=== PATIENT | male | born 1935 | race Caucasian/White ===

== ENCOUNTER 2018-05-12 11:36 | Outpatient (REF) | payer MEDICARE, SELFPAY ==
[2018-05-12 22:57] LABS: Anion Gap 8.7 mmol/L (3-11); BUN 30 mg/dL (7-18); CO2 25.3 mmol/L (21.0-32.0); CREATININE 1.49 mg/dL (0.70-1.30); Chloride 107 mmol/L (98-107); Estimated GFR 45.38 (mL/min/1.73m2); Glucose 232 mg/dL (70-100); Potassium 5.4 mmol/L (3.5-5.1); Sodium 141 mmol/L (136-145)
[2018-05-12 23:56] LABS: COMMENT (LAB VIEW ONLY) 111.79 mg/dL; Microalb ug/mg Crea 65.6 ug/mg Cr
== END 2018-05-12 11:56 ==
LOC: NCHCN 11:36
PROVIDERS: PCP Internal Medicine; Visit Provider Internal Medicine
DX: E11.9 Type 2 diabetes mellitus without complications (principal); E87.5 Hyperkalemia
CPT/HCPCS: 80048; 82043; 82570

== ENCOUNTER 2018-06-02 10:46 | Outpatient (REF) | payer MEDICARE, SELFPAY ==
[2018-06-02 21:22] LABS: Potassium 5.3 mmol/L (3.5-5.1)
== END 2018-06-02 11:06 ==
LOC: NCHCN 10:46
PROVIDERS: PCP Internal Medicine; Visit Provider Internal Medicine
DX: R79.0 Abnormal level of blood mineral (principal)
CPT/HCPCS: 84132

== ENCOUNTER 2018-08-09 22:49 | Outpatient (REF) | payer MEDICARE, SELFPAY ==
[2018-08-09 23:30] LABS: Anion Gap 9.8 mmol/L (3-11); BUN 31 mg/dL (7-18); CO2 27.2 mmol/L (21.0-32.0); Calcium 8.8 mg/dL (8.5-10.1); Chloride 105 mmol/L (98-107); Estimated GFR 52.98 (mL/min/1.73m2); Glucose 193 mg/dL (70-100); Potassium 4.9 mmol/L (3.5-5.1); Sodium 142 mmol/L (136-145)
== END 2018-08-09 23:09 ==
LOC: NCHCN 22:49
PROVIDERS: PCP Internal Medicine; Visit Provider Internal Medicine
DX: R79.0 Abnormal level of blood mineral (principal); E11.9 Type 2 diabetes mellitus without complications
CPT/HCPCS: 80048

== ENCOUNTER 2019-08-31 10:30 | Outpatient (REF) | payer MEDICARE, SELFPAY ==
[2019-08-31 23:07] LABS: Anion Gap 12.3 mmol/L (3-11); BUN 34 mg/dL (7-18); CO2 25.7 mmol/L (21.0-32.0); CREATININE 1.46 mg/dL (0.70-1.30); Calcium 8.9 mg/dL (8.5-10.1); Calculated LDL 95 mg/dL; Chloride 104 mmol/L (98-107); Cholesterol 146 mg/dL (<200); Estimated GFR 46.23 (mL/min/1.73m2); Glucose 173 mg/dL (74-106); HDL Cholesterol 41 mg/dL (40-60); Hemoglobin A1C 7.8 % (3.8-5.6); Potassium 4.7 mmol/L (3.5-5.1); Sodium 142 mmol/L (136-145); Triglyceride 54 mg/dL (<150)
[2019-08-31 23:22] LABS: COMMENT (LAB VIEW ONLY) 87.95 mg/dL; Microalb ug/mg Crea 92.7 ug/mg Cr
== END 2019-08-31 10:50 ==
LOC: NCHCN 10:30
PROVIDERS: PCP Internal Medicine; Visit Provider Internal Medicine
DX: E11.9 Type 2 diabetes mellitus without complications (principal); I10 Essential (primary) hypertension; I25.10 Atherosclerotic heart disease of native coronary artery without angina pectoris; Z13.6 Encounter for screening for cardiovascular disorders
CPT/HCPCS: 80048; 80061; 82043; 82570; 83036

== ENCOUNTER 2020-03-19 11:12 | Outpatient (REF) | payer MEDICARE, SELFPAY ==
[2020-03-19 22:24] LABS: Anion Gap 10.5 mmol/L (3-11); BUN 44 mg/dL (7-18); CO2 23.5 mmol/L (21.0-32.0); CREATININE 1.91 mg/dL (0.70-1.30); Calcium 8.7 mg/dL (8.5-10.1); Chloride 106 mmol/L (98-107); Glucose 271 mg/dL (74-106); Potassium 5.2 mmol/L (3.5-5.1); Sodium 140 mmol/L (136-145)
[2020-03-19 22:36] LABS: Hemoglobin A1C 7.8 % (3.8-5.6)
== END 2020-03-19 11:32 ==
LOC: NCHCN 11:12
PROVIDERS: PCP Internal Medicine; Visit Provider Internal Medicine
DX: E11.9 Type 2 diabetes mellitus without complications (principal); I10 Essential (primary) hypertension
CPT/HCPCS: 80048; 83036

== ENCOUNTER 2020-03-22 11:53 | Outpatient (REF) | payer MEDICARE, SELFPAY ==
[2020-03-22 21:08] LABS: Bilirubin Negative (Negative); Blood Negative (Negative); Clarity Clear (Clear); Glucose Negative (Negative); Ketones Trace mg/dL (Negative); Leukocyte Esterase Negative (Negative); Nitrite Negative (Negative); Specific Gravity 1.025 (1.005-1.025); Urobilinogen 0.2 EU/dL (Up TO 0.2); pH 5.5 (5-8)
[2020-03-22 21:19] LABS: Bacteria Negative HPF (Negative); C & S Indicated? No; Crystals Negative HPF (Negative); Epithelial Cells Negative HPF (Negative); Mucus Negative (Negative); RBC 0-2 HPF (0-2); WBC 0-2 HPF (0-5)
[2020-03-22 21:31] LABS: Microalb ug/mg Crea 94.5 ug/mg Cr
== END 2020-03-22 12:13 ==
LOC: NCHCN 11:53
PROVIDERS: PCP Internal Medicine; Visit Provider Internal Medicine
DX: N18.3 Chronic kidney disease, stage 3 (moderate) (principal)
CPT/HCPCS: 81003; 81015; 82043; 82570

== ENCOUNTER 2020-04-03 21:51 | Outpatient (REF) | payer MEDICARE, SELFPAY ==
[2020-04-03 21:34] LABS: Anion Gap 10.9 mmol/L (3-11); BUN 36 mg/dL (7-18); CO2 25.1 mmol/L (21.0-32.0); CREATININE 1.67 mg/dL (0.70-1.30); Chloride 106 mmol/L (98-107); Estimated GFR 39.58 (mL/min/1.73m2); Glucose 149 mg/dL (74-106); Potassium 4.6 mmol/L (3.5-5.1); Sodium 142 mmol/L (136-145)
== END 2020-04-03 22:11 ==
LOC: NCHCN 21:51
PROVIDERS: PCP Internal Medicine; Visit Provider Internal Medicine
DX: N18.3 Chronic kidney disease, stage 3 (moderate) (principal)
CPT/HCPCS: 80048

== ENCOUNTER 2020-06-08 12:38 | Outpatient (REF) | payer MEDICARE, SELFPAY ==
[2020-06-08 21:23] LABS: BUN 33 mg/dL (7-18); CREATININE 1.52 mg/dL (0.70-1.30); Chloride 106 mmol/L (98-107); Estimated GFR 44.13 (mL/min/1.73m2); Glucose 115 mg/dL (74-106); Potassium 4.6 mmol/L (3.5-5.1); Sodium 138 mmol/L (136-145)
[2020-06-08 21:24] LABS: Hemoglobin A1C 7.3 % (<5.7)
== END 2020-06-08 12:58 ==
LOC: NCHCN 12:38
PROVIDERS: PCP Internal Medicine; Visit Provider Internal Medicine
DX: E11.9 Type 2 diabetes mellitus without complications (principal); I10 Essential (primary) hypertension; N18.30 Chronic kidney disease, stage 3 unspecified
CPT/HCPCS: 80048; 83036

== ENCOUNTER 2020-12-11 15:00 | Outpatient (REF) | payer MEDICARE, SELFPAY ==
[2020-12-11 13:08] LABS: BUN 41 mg/dL (7-18); CREATININE 1.7 mg/dL (0.70-1.30); Calcium 8.5 mg/dL (8.5-10.1); Chloride 108 mmol/L (98-107); Estimated GFR 38.68 (mL/min/1.73m2); Glucose 158 mg/dL (74-106); Sodium 142 mmol/L (136-145)
== END 2020-12-11 15:01 | disposition home or self-care (01) ==
LOC: NCHCN 15:00
PROVIDERS: PCP Internal Medicine; Visit Provider Internal Medicine
DX: I10 Essential (primary) hypertension (principal); N18.30 Chronic kidney disease, stage 3 unspecified; E11.9 Type 2 diabetes mellitus without complications
CPT/HCPCS: 80048; 83036

== ENCOUNTER 2021-02-07 13:05 | Outpatient (REF) | payer MEDICARE, SELFPAY ==
[2021-02-07 21:07] LABS: Anion Gap 12.4 mmol/L (3-11); BUN 39 mg/dL (7-18); CO2 23.6 mmol/L (21.0-32.0); CREATININE 1.6 mg/dL (0.70-1.30); Calcium 8.8 mg/dL (8.5-10.1); Chloride 105 mmol/L (98-107); Estimated GFR 41.49 (mL/min/1.73m2); Glucose 204 mg/dL (74-106); Potassium 4.8 mmol/L (3.5-5.1); Sodium 141 mmol/L (136-145)
== END 2021-02-08 13:06 | disposition home or self-care (01) ==
LOC: NCHCN 13:05
PROVIDERS: PCP Internal Medicine; Visit Provider Registered Nurse
DX: R42 Dizziness and giddiness (principal)
CPT/HCPCS: 80048

== ENCOUNTER 2021-03-07 10:14 | Outpatient (REF) | payer MEDICARE, SELFPAY ==
[2021-03-07 14:05] LABS: Abs Immature Grans 0.02 10^3/uL (0.0-0.06); Absolute Basophil Count 0.04 10^3/uL (0.0-0.2); Absolute Eosinophil Count 0.21 10^3/uL (0.0-0.7); Absolute Lymphocyte Count 2.16 10^3/uL (1.2-3.4); Absolute Monocyte Count 0.84 10^3/uL (0.1-0.8); Basophils % 0.5; Eosinophils % 2.8; HCT 35.4 % (40.0-50.0); HGB 11.8 g/dL (13.5-17.5); Immature Grans % 0.3; Lymphocytes % 28.9; MCH 32.1 pg (27.0-33.0); MCHC 33.3 % (32.0-36.0); MCV 96.2 fL (80-95); MPV 11.1 fL (8.0-11.0); Monocytes % 11.2; Neutrophils % 56.3; Nucleated RBC 0 %; Platelet Count 206 10^3/uL (130-400); RBC 3.68 10^6/uL (4.36-5.78); RDW 13.1 % (11.8-14.1); RDW-SD 46.4 fL; WBC 7.47 10^3/uL (4.4-10.8)
[2021-03-07 14:17] LABS: ALT 31 U/L (16-63); AST 16 U/L (15-37); Albumin 3.5 g/dL (3.4-5.0); Alkaline Phosphatase 84 U/L (46-116); Anion Gap 10.9 mmol/L (3-11); BUN 32 mg/dL (7-18); Bilirubin, Direct 0.1 mg/dL (0.0-0.2); Bilirubin, Total 0.4 mg/dL (0.2-1.0); CO2 22.1 mmol/L (21.0-32.0); CREATININE 1.5 mg/dL (0.70-1.30); Calcium 8.4 mg/dL (8.5-10.1); Chloride 109 mmol/L (98-107); Estimated GFR 44.69 (mL/min/1.73m2); Glucose 110 mg/dL (74-106); Potassium 5.1 mmol/L (3.5-5.1); Sodium 142 mmol/L (136-145); Total Protein 6.5 g/dL (6.4-8.2)
[2021-03-07 14:50] LABS: Hemoglobin A1C 8.8 % (<5.7)
[2021-03-09 13:43] LABS: Vitamin D 25 Total 31.3 ng/mL (30-100)
== END 2021-03-07 10:15 | disposition home or self-care (01) ==
LOC: NCHCN 10:14
PROVIDERS: PCP Internal Medicine; Visit Provider Internal Medicine
DX: I12.9 Hypertensive chronic kidney disease with stage 1 through stage 4 chronic kidney disease, or unspecified chronic kidney disease (principal); E11.22 Type 2 diabetes mellitus with diabetic chronic kidney disease; N18.30 Chronic kidney disease, stage 3 unspecified
CPT/HCPCS: 80048; 80076; 82306; 83036; 85025

== ENCOUNTER 2021-03-18 13:44 | Outpatient (REF) | payer MEDICARE, SELFPAY ==
[2021-03-18 21:33] LABS: Microalb ug/mg Crea 61.7 ug/mg Cr
== END 2021-03-18 13:45 | disposition home or self-care (01) ==
LOC: NCHCN 13:44
PROVIDERS: PCP Internal Medicine; Visit Provider Internal Medicine
DX: E11.9 Type 2 diabetes mellitus without complications (principal)
CPT/HCPCS: 82043; 82570

== ENCOUNTER 2021-12-13 12:57 | Outpatient (REF) | payer MEDICARE, SELFPAY ==
[2021-12-13 15:48] LABS: Abs Immature Grans 0.01 10^3/uL (0.0-0.06); Absolute Basophil Count 0.04 10^3/uL (0.0-0.2); Absolute Eosinophil Count 0.12 10^3/uL (0.0-0.7); Absolute Lymphocyte Count 1.71 10^3/uL (1.2-3.4); Absolute Monocyte Count 0.77 10^3/uL (0.1-0.8); Absolute Neutrophil Count 5.18 10^3/uL (1.2-6.7); Basophils % 0.5; Eosinophils % 1.5; HCT 34.3 % (40.0-50.0); HGB 11.2 g/dL (13.5-17.5); Immature Grans % 0.1; Lymphocytes % 21.8; MCH 32.1 pg (27.0-33.0); MCHC 32.7 % (32.0-36.0); MCV 98.3 fL (80-95); MPV 11.2 fL (8.0-11.0); Monocytes % 9.8; Neutrophils % 66.3; Platelet Count 197 10^3/uL (130-400); RBC 3.49 10^6/uL (4.36-5.78); RDW 13.1 % (11.8-14.1); RDW-SD 46.7 fL; WBC 7.83 10^3/uL (4.4-10.8)
[2021-12-13 16:04] LABS: Anion Gap 7.5 mmol/L (3-11); BUN 32 mg/dL (7-18); CO2 26.5 mmol/L (21.0-32.0); CREATININE 1.4 mg/dL (0.70-1.30); Calcium 8.3 mg/dL (8.5-10.1); Chloride 107 mmol/L (98-107); Estimated GFR 48.28 (mL/min/1.73m2); Glucose 200 mg/dL (74-106); Potassium 4.8 mmol/L (3.5-5.1); Sodium 141 mmol/L (136-145)
[2021-12-13 16:14] LABS: Microalb ug/mg Crea 125.7 ug/mg Cr
[2021-12-13 16:16] LABS: Hemoglobin A1C 7.2 % (<5.7)
== END 2021-12-13 12:58 | disposition home or self-care (01) ==
LOC: NCHCN 12:57
PROVIDERS: PCP Internal Medicine; Visit Provider Internal Medicine
DX: E11.9 Type 2 diabetes mellitus without complications (principal); N18.30 Chronic kidney disease, stage 3 unspecified; I10 Essential (primary) hypertension
CPT/HCPCS: 80048; 82043; 82570; 83036; 85025

== ENCOUNTER 2022-11-24 12:46 | Outpatient (REF) | payer MEDICARE, SELFPAY ==
[2022-11-24 21:23] LABS: Abs Immature Grans 0.03 10^3/uL (0.0-0.06); Absolute Basophil Count 0.05 10^3/uL (0.0-0.2); Absolute Eosinophil Count 0.12 10^3/uL (0.0-0.7); Absolute Monocyte Count 0.88 10^3/uL (0.1-0.8); Absolute Neutrophil Count 5.71 10^3/uL (1.2-6.7); Basophils % 0.6; Eosinophils % 1.3; HGB 12.8 g/dL (13.5-17.5); Immature Grans % 0.3; Lymphocytes % 24.5; MCH 31.7 pg (27.0-33.0); MCHC 33.7 % (32.0-36.0); MCV 94 fL (80-95); MPV 11.7 fL (8.0-11.0); Monocytes % 9.8; Neutrophils % 63.5; Platelet Count 222 10^3/uL (130-400); RBC 4.04 10^6/uL (4.36-5.78); RDW 13.5 % (11.8-14.1); RDW-SD 46.6 fL; WBC 8.99 10^3/uL (4.4-10.8)
[2022-11-24 21:58] LABS: COMMENT (LAB VIEW ONLY) 107.82 mg/dL
[2022-11-24 22:17] LABS: ALT 30 U/L (16-63); AST 23 U/L (15-37); Albumin 4.2 g/dL (3.4-5.0); Alkaline Phosphatase 94 U/L (46-116); Anion Gap 10.2 mmol/L (3-11); BUN 40 mg/dL (7-18); Bilirubin, Total 0.4 mg/dL (0.2-1.0); CO2 24.8 mmol/L (21.0-32.0); CREATININE 1.8 mg/dL (0.70-1.30); Calcium 9.3 mg/dL (8.5-10.1); Chloride 108 mmol/L (98-107); Estimated GFR 36.43 (mL/min/1.73m2); Glucose 151 mg/dL (74-106); Potassium 5.4 mmol/L (3.5-5.1); Sodium 143 mmol/L (136-145); Total Protein 7.8 g/dL (6.4-8.2); Vitamin B12 529 pg/mL (193-986)
[2022-11-24 22:29] LABS: Microalb ug/mg Crea 269.4 ug/mg Cr
== END 2022-11-24 12:47 | disposition home or self-care (01) ==
LOC: NCHCN 12:46
PROVIDERS: PCP Internal Medicine; Visit Provider Internal Medicine
DX: D53.9 Nutritional anemia, unspecified (principal); E11.9 Type 2 diabetes mellitus without complications; I10 Essential (primary) hypertension
CPT/HCPCS: 80053; 82043; 82570; 82607; 82746; 85025

== ENCOUNTER 2022-12-25 10:29 | Outpatient (REF) | payer MEDICARE, SELFPAY ==
[2022-12-25 15:32] LABS: BUN 50 mg/dL (7-18); CREATININE 2.1 mg/dL (0.70-1.30); Calcium 8.9 mg/dL (8.5-10.1); Chloride 106 mmol/L (98-107); Estimated GFR 30.28 (mL/min/1.73m2); Glucose 139 mg/dL (74-106); Potassium 5.4 mmol/L (3.5-5.1); Sodium 140 mmol/L (136-145)
== END 2022-12-25 10:30 | disposition home or self-care (01) ==
LOC: NCHCN 10:29
PROVIDERS: PCP Internal Medicine; Visit Provider Internal Medicine
DX: N17.9 Acute kidney failure, unspecified (principal); E11.9 Type 2 diabetes mellitus without complications
CPT/HCPCS: 80048

== ENCOUNTER 2023-02-20 12:05 | Outpatient (REF) | payer MEDICARE, SELFPAY ==
[2023-02-20 15:34] LABS: HCT 36.9 % (40.0-50.0); HGB 12.6 g/dL (13.5-17.5); MCHC 34.1 % (32.0-36.0); MCV 97 fL (80-95); MPV 11.1 fL (8.0-11.0); Platelet Count 244 10^3/uL (130-400); RBC 3.82 10^6/uL (4.36-5.78); RDW 13.7 % (11.8-14.1); RDW-SD 48.8 fL
[2023-02-20 15:42] LABS: Anion Gap 12.4 mmol/L (3-11); BUN 39 mg/dL (7-18); CO2 23.6 mmol/L (21.0-32.0); CREATININE 1.8 mg/dL (0.70-1.30); Calcium 9.2 mg/dL (8.5-10.1); Chloride 104 mmol/L (98-107); Estimated GFR 36.43 (mL/min/1.73m2); Glucose 179 mg/dL (74-106); Potassium 4.9 mmol/L (3.5-5.1); Sodium 140 mmol/L (136-145)
[2023-02-20 15:44] LABS: C-Reactive Protein < 0.05 mg/dL (0.0-0.3)
== END 2023-02-20 12:06 | disposition home or self-care (01) ==
LOC: NCHCN 12:05
PROVIDERS: PCP Internal Medicine; Visit Provider Internal Medicine
DX: N17.9 Acute kidney failure, unspecified (principal); H53.2 Diplopia
CPT/HCPCS: 80048; 83519; 85027; 86140

== ENCOUNTER 2023-07-22 16:47 | Outpatient (REF) | payer MEDICARE, SELFPAY ==
[2023-07-22 21:39] LABS: Anion Gap 10.9 mmol/L (3-11); BUN 33 mg/dL (7-18); CO2 25.1 mmol/L (21.0-32.0); CREATININE 1.9 mg/dL (0.70-1.30); Calcium 8.9 mg/dL (8.5-10.1); Chloride 105 mmol/L (98-107); Estimated GFR 33.93 (mL/min/1.73m2); Glucose 168 mg/dL (74-106); Potassium 4.6 mmol/L (3.5-5.1); Sodium 141 mmol/L (136-145)
[2023-07-22 21:47] LABS: Hemoglobin A1C 8.2 % (<5.7)
== END 2023-07-22 16:48 | disposition home or self-care (01) ==
LOC: NCHCN 16:47
PROVIDERS: PCP Internal Medicine; Visit Provider Internal Medicine
DX: E11.9 Type 2 diabetes mellitus without complications (principal); N18.30 Chronic kidney disease, stage 3 unspecified
CPT/HCPCS: 80048; 83036

== ENCOUNTER 2023-10-23 16:45 | Outpatient (REF) | payer MEDICARE, SELFPAY ==
[2023-10-23 15:02] LABS: Hemoglobin A1C 7.7 % (<5.7)
== END 2023-10-23 16:46 | disposition home or self-care (01) ==
LOC: NCHCN 16:45
PROVIDERS: PCP Internal Medicine; Referring Provider Internal Medicine; Visit Provider Internal Medicine
DX: E11.9 Type 2 diabetes mellitus without complications (principal)
CPT/HCPCS: 83036

== ENCOUNTER 2024-02-17 12:09 | Outpatient (REF) | payer MEDICARE, SELFPAY ==
[2024-02-17 14:44] LABS: HCT 36.1 % (40.0-50.0); HGB 12.4 g/dL (13.5-17.5); MCH 33.6 pg (27.0-33.0); MCHC 34.3 % (32.0-36.0); MCV 98 fL (80-95); Platelet Count 239 10^3/uL (130-400); RBC 3.69 10^6/uL (4.36-5.78); RDW 14.4 % (11.8-14.1); RDW-SD 51.7 fL; WBC 8.03 10^3/uL (4.4-10.8)
[2024-02-17 15:29] LABS: ALT 32 U/L (16-63); AST 20 U/L (15-37); Albumin 3.7 g/dL (3.4-5.0); Alkaline Phosphatase 81 U/L (46-116); Anion Gap 10.8 mmol/L (3-11); BUN 40 mg/dL (7-18); Bilirubin, Total 0.39 mg/dL (0.2-1.0); CO2 25.2 mmol/L (21.0-32.0); CREATININE 1.8 mg/dL (0.70-1.30); Calcium 9.4 mg/dL (8.5-10.1); Chloride 107 mmol/L (98-107); Estimated GFR 36.21 (mL/min/1.73m2); Ferritin 50 ng/mL (26-388); Glucose 139 mg/dL (74-106); Potassium 4.9 mmol/L (3.5-5.1); Sodium 143 mmol/L (136-145); Total Protein 7.4 g/dL (6.4-8.2); Vitamin D 25 Total 23.6 ng/mL (30-100)
[2024-02-17 22:27] LABS: Parathyroid Hormone,Intact 35 pg/mL (19-88)
== END 2024-02-17 12:10 | disposition home or self-care (01) ==
LOC: NCHCN 12:09
PROVIDERS: PCP Internal Medicine; Visit Provider Internal Medicine
DX: N18.30 Chronic kidney disease, stage 3 unspecified (principal)
CPT/HCPCS: 80053; 82306; 85027; 82728; 83970

== ENCOUNTER 2024-07-11 14:54 | Outpatient (REF) | payer MEDICARE, SELFPAY ==
[2024-07-11 21:21] LABS: COMMENT (LAB VIEW ONLY) 97.52 mg/dL
[2024-07-11 21:22] LABS: Microalb ug/mg Crea 396.3 ug/mg Cr
== END 2024-07-11 14:55 | disposition home or self-care (01) ==
LOC: NCHCN 14:54
PROVIDERS: PCP Internal Medicine; Visit Provider Internal Medicine
DX: E11.9 Type 2 diabetes mellitus without complications (principal)
CPT/HCPCS: 82043; 82570

== ENCOUNTER 2024-10-05 13:04 | Outpatient (REF) | payer MEDICARE, SELFPAY ==
[2024-10-05 14:20] LABS: HCT 35.3 % (40.0-50.0); HGB 11.8 g/dL (13.5-17.5); MCH 33.2 pg (27.0-33.0); MCHC 33.4 % (32.0-36.0); MCV 99 fL (80-95); MPV 10.5 fL (8.0-11.0); Platelet Count 250 10^3/uL (130-400); RBC 3.55 10^6/uL (4.36-5.78); RDW 14.6 % (11.8-14.1); RDW-SD 52.9 fL; WBC 7.58 10^3/uL (4.4-10.8)
[2024-10-05 14:49] LABS: Anion Gap 9.2 mmol/L (3-11); BUN 34 mg/dL (7-18); CO2 25.8 mmol/L (21.0-32.0); CREATININE 1.7 mg/dL (0.70-1.30); Calcium 9.1 mg/dL (8.5-10.1); Chloride 108 mmol/L (98-107); Estimated GFR 38.53 (mL/min/1.73m2); Glucose 103 mg/dL (74-106); Potassium 5.2 mmol/L (3.5-5.1); Sodium 143 mmol/L (136-145); Vitamin D 25 Total 50.2 ng/mL (30-100)
[2024-10-05 15:03] LABS: Hemoglobin A1C 7.5 % (<5.7)
== END 2024-10-05 13:05 | disposition home or self-care (01) ==
LOC: NCHCN 13:04
PROVIDERS: PCP Internal Medicine; Visit Provider Internal Medicine
DX: E11.9 Type 2 diabetes mellitus without complications (principal); N18.30 Chronic kidney disease, stage 3 unspecified; I10 Essential (primary) hypertension
CPT/HCPCS: 80048; 82306; 85027; 83036

== ENCOUNTER 2024-10-12 13:10 | Outpatient (REF) | payer MEDICARE, SELFPAY ==
[2024-10-12 16:55] LABS: Vitamin B12 311 pg/mL (193-986)
== END 2024-10-12 13:11 | disposition home or self-care (01) ==
LOC: NCHCN 13:10
PROVIDERS: PCP Internal Medicine; Visit Provider Internal Medicine
DX: R41.3 Other amnesia (principal)
CPT/HCPCS: 82607

== ENCOUNTER 2025-01-09 12:27 | Outpatient (REF) | payer MEDICARE, SELFPAY ==
[2025-01-09 15:12] LABS: Absolute Basophil Count 0.03 10^3/uL (0.0-0.2); Absolute Eosinophil Count 0.06 10^3/uL (0.0-0.7); Absolute Lymphocyte Count 1.95 10^3/uL (1.2-3.4); Absolute Neutrophil Count 4.14 10^3/uL (1.2-6.7); Basophils % 0.4 %; Eosinophils % 0.8 %; HCT 35.4 % (40.0-50.0); HGB 11.8 g/dL (13.5-17.5); Lymphocytes % 27.5 %; MCH 33.4 pg (27.0-33.0); MCHC 33.3 % (32.0-36.0); MCV 100 fL (80-95); MPV 10.5 fL (8.0-11.0); Monocytes % 12.7 %; Neutrophils % 58.6 %; Platelet Count 285 10^3/uL (130-400); RBC 3.53 10^6/uL (4.36-5.78); RDW-SD 55.3 fL; WBC 7.08 10^3/uL (4.4-10.8)
[2025-01-09 15:37] LABS: ALT 22 U/L (16-63); AST 28 U/L (15-37); Albumin 3.4 g/dL (3.4-5.0); Alkaline Phosphatase 130 U/L (46-116); Anion Gap 11.6 mmol/L (3-11); BUN 39 mg/dL (7-18); Bilirubin, Total 0.4 mg/dL (0.2-1.0); CO2 25.4 mmol/L (21.0-32.0); CREATININE 2.1 mg/dL (0.70-1.30); Calcium 9.9 mg/dL (8.5-10.1); Chloride 102 mmol/L (98-107); Glucose 119 mg/dL (74-106); Potassium 4.7 mmol/L (3.5-5.1); Sodium 139 mmol/L (136-145); Total Protein 7.7 g/dL (6.4-8.2)
[2025-01-09 15:45] LABS: TSH 134.52 uIU/mL (0.36-3.74)
[2025-01-09 19:09] LABS: FREE T4 0.35 ng/dL (0.76-1.46)
== END 2025-01-09 12:28 | disposition home or self-care (01) ==
LOC: NCHCN 12:27
PROVIDERS: PCP Internal Medicine; Visit Provider Internal Medicine
DX: R63.4 Abnormal weight loss (principal); R79.89 Other specified abnormal findings of blood chemistry
CPT/HCPCS: 80053; 84439; 84443; 85025